=== PATIENT | male | born 1990 | race Caucasian/White ===

== ENCOUNTER 2022-09-15 12:29 | Emergency (ER) | payer MEDICAID, SELFPAY ==
--- NOTE | ~2022-09-15 | XR_ITS ---
EXAMINATION: XR CHEST CLINICAL INFORMATION: Productive cough. COMPARISON: 05/14/2015 chest radiographs. TECHNIQUE: 2 views of the chest were obtained. FINDINGS: No significant abnormality is noted involving the heart, lungs, mediastinum, bony thorax or soft tissues. XR/XR chest 2V IMPRESSION: No acute cardiopulmonary process.
[2022-09-15 12:41] VITALS: BP 151/96; PULSE 89; RESP 19; TEMP 36.6; O2SAT 98; BMI 32.6
--- NOTE | 2022-09-15 12:41 | ED.URI ---
HPI - URI/Sore Throat General Chief Complaint: Upper Respiratory Symptoms Stated Complaint: sore throat Time Seen by Provider: 09/15/22 13:10 History of Present Illness HPI Narrative: Patient complains of cough productive of sputum for the past 2 weeks along with runny nose Related Data Previous Rx's Medication Instructions Recorded azithromycin 250 mg tablet See Rx Instructions PO .COMPLEX #6 09/15/22 (Zithromax Z-Nico) tabs benzonatate 200 mg capsule 200 mg PO BID PRN cough #14 caps 09/15/22 Allergies Allergy/AdvReac Type Severity Reaction Status Date / Time acetaminophen [From TYLENOL] AdvReac Unknown HIVES Verified 09/15/22 12:41 PMFSH Social History Social History Advance Directives: No Advance Directives Information Provided: No Physical Exam Vital Signs: Vital Signs: Last Vital Signs Temp 98 F 09/15/22 12:41 Pulse 89 09/15/22 12:41 Resp 19 09/15/22 12:41 BP 151/96 H 09/15/22 12:41 Pulse Ox 98 09/15/22 12:41 O2 Del Method Room Air 09/15/22 12:41 BMI result Body Mass Index 32.6 Course Course Course Narrative: RME - 31 yo male with no medical problems, active smoker who presents to the ER for evaluation of sore throat, laryngitis, cough, blood tinged sputum for the last 2 weeks. Symptoms overall improving but getting evaluated today because his significant other is here for sore throat as well. VSS in triage. Plan: CXR Patient with cough productive of sputum for 2 weeks, possibly improving had negative chest x-ray negative COVID test and was well appearing breathing easily with clear lungs He is prescribed antibiotic only if needed if symptoms are not improving after 2 days, told likely it is viral Well-appearing patient is discharged Medical Decision Making Lab Data Labs: Lab Results 09/15/22 Range/Units 13:38 COVID-19 (CATHERINE) Negative (Negative) COVID-19 Clin Com See Note Discharge Plan Discharge Clinical Impression: Bronchitis Patient Disposition: Home, Self-Care Additional Instructions: Chest x-ray was normal and COVID test was negative It is likely a viral bronchitis but it is possibly bacterial It is fine to wait a day or 2 to start antibiotic to see if it is getting better by itself Return any time for difficulty breathing any worse condition any concerns Prescriptions: New benzonatate 200 mg capsule 200 mg PO BID PRN (Reason: cough) Qty: 14 0RF azithromycin [Zithromax Z-Nico] 250 mg tablet See Rx Instructions .ROUTE .COMPLEX Qty: 6 0RF Rx Instructions: For 250 mg dose pack: take 500 mg today (day 1), then 250 mg for 4 days (days 2-5)
[2022-09-15 14:01] LABS: COVID-19 Test Negative (Negative); IDNOW Serial# 16C4AD1C
== END 2022-09-15 14:31 | disposition home or self-care (01) ==
PROVIDERS: Physician Assistant Medical; Emergency Provider Emergency Medicine
DX: J40 Bronchitis, not specified as acute or chronic (principal); Z20.822 Contact with and (suspected) exposure to COVID-19
CPT/HCPCS: 71046; 87635; 99282; 99283

== ENCOUNTER 2022-09-17 18:28 | Emergency (ER) | payer MEDICAID, SELFPAY ==
[2022-09-17 19:07] VITALS: BP 130/87; PULSE 88; RESP 18; TEMP 36; O2SAT 99; BMI 33.8
--- NOTE | 2022-09-17 19:11 | ED_ITS ---
HPI - Skin/Abscess/Foreign Bdy General Chief complaint: Skin/Abscess/Foreign Body Stated complaint: Rash on hands and feet Time Seen by Provider: 09/17/22 20:07 Source: patient Mode of arrival: ambulatory Limitations: no limitations History of Present Illness HPI narrative: Patient is a 31-year-old male with no significant past medical history presenting with rash to dorsal aspect of hands and dorsum of feet for the past 3 weeks. He denies pain or pruritis. Denies fevers/sweats/chills or body aches. Reports areas of the rash occasionally appear to be blister-like and he punctures them. Drainage is clear. No rash to palms of hands or soles of feet. States rash began after going to the gym. Has not been to the gym in the past 2 weeks related to cough, and rash has persisted. Denies any close contacts with similar rash. Denies any new medications. Denies concern for STIs. Denies known tick bites. Denies working outside or being outside frequently. Denies any sores in his mouth. complaint: rash Onset (ago): week(s) Tetanus up to date: yes Location: L hand, R hand, L foot and R foot Severity: mild Relieving factors: none Exacerbating factors: none Context: none Associated symptoms: denies other symptoms Treatments prior to arrival: none Related Data Previous Rx's Medication Instructions Recorded azithromycin 250 mg tablet See Rx Instructions PO .COMPLEX #6 09/15/22 (Zithromax Z-Nico) tabs benzonatate 200 mg capsule 200 mg PO BID PRN cough #14 caps 09/15/22 prednisone 20 mg tablet 40 mg PO DAILY #10 tabs 09/17/22 triamcinolone acetonide 0.5 % 1 appl topical BID #15 grams 09/17/22 topical cream Allergies Allergy/AdvReac Type Severity Reaction Status Date / Time acetaminophen [From TYLENOL] AdvReac Unknown HIVES Verified 09/17/22 19:07 Review of Systems Review of Systems: As per HPI. Yes all other systems are reviewed and are negative Constitutional: Constitutional: Reports as per HPI [facility] Social History Social History Advance Directives: No Advance Directives Information Provided: No Physical Exam Vital Signs: Vital Signs: Last Vital Signs Temp 97.7 F 09/17/22 19:58 Pulse 86 06/12/23 19:58 Resp 19 09/17/22 19:58 BP 143/88 H 09/17/22 19:58 Pulse Ox 99 09/17/22 19:58 O2 Del Method Room Air 09/17/22 19:58 BMI result Body Mass Index 33.8 Vital signs have been reviewed and appear to be correct. Blood pressure slightly elevated. Heart rate normal. Respiratory rate normal. Temperature normal. Oxygen saturation normal. Const: General: cooperative, healthy appearing and no acute distress Orientation/consciousness: oriented to person, oriented to place, oriented to time and patient oriented x3 Limitations: no limitations HEENT: Head: Yes normocephalic and Yes atraumatic Ears: external ears normal General nose exam: Normal external nose present Face and sinus: Yes face symmetric Mouth: oropharynx normal and moist mucous membranes Throat: Yes uvula midline Eyes: Pupils: Equal, round and reactive pupils present Neck: Neck: Yes normal visual inspection and Yes supple Resp: Effort & Inspection: normal respiratory effort and able to speak in complete sentences Auscultation: clear to auscultation bilaterally Cardio: Rate: regular rate Rhythm: regular rhythm Heart sounds: S1 normal heart sound present and S2 normal heart sound present GI: Palpation (GI): Soft to palpation and nontender Auscultation: normoactive bowel sounds : General: Yes no CVA tenderness Back/Spine/Pelvis: Back: no CVA tenderness Skin: General skin exam: elasticity normal and turgor normal Rashes: rashes noted papules bilateral dorsal hand size (2-3mm), arrangement clustered, borders indistinct and color blanching and red; fluctuant not assessed and nontender, papules bilateral dorsal foot size (2-3mm), arrangement clustered, borders indistinct and color blanching and red; fluctuant not assessed and nontender Neuro: General: oriented to person, oriented to place, oriented to time, mando ent oriented x3, moves all extremities, no focal motor deficits and CN's II-XI intact bilaterally Cranial nerves: Yes Equal, round and reactive pupils present Cognition (Neuro): normal cognition Extrem: General: Yes full ROM, Yes no pedal edema and Yes no calf tenderness Psych: Mental Status: mental status grossly normal Affect: normal affect Thought process: Normal thought process present Course Course Course Narrative: RME: 31yo M w/PMHx bronchitis tx in our ED 09/15 presenting to the ED c/o rash to b/l hands and feet x few weeks. Denies known new exposures, soaps/lotions, detergents, new medications. Is sexually active with 1 partner, denies concern for STI Papular macular blanching lesions noted bilateral hands and feet. CBC, BMP, tick-borne, Lyme, syphilis ordered Full HPI, ROS and PE to be performed by primary ED provider. Medical Decision Making Medical Decision Making [facility] Narrative: Patient is a 31-year-old male with no significant past medical history presenting with rash to dorsal aspect of hands and dorsum of feet for the past 3 weeks. On exam patient is awake, A+Ox3, in no acute distress, VS WNL, afebrile, erythematous maculopapular nontender rash to dorsal aspect of hands and feet without drainage, no bullae, negative Nikolsky's, no oral lesions, no petechiae, no rash to palms or soles, no linear burrows. Labs within normal limits. Differential includes contact dermatitis, dishydrotic eczema, Lyme. Considered but unlikely DRESS, endocarditis, TTP, meningococcemia, SSSS, TEN/SJS, TSS, seondary syphilis. Will prescribe short course of prednisone and topical triamcinolone cream. Instructed patient to follow up with PCP as he will likely require referral to dermatology. Patient instructed to avoid puncturing any blisters/vesicles. Return precautions discussed at bedside. Differential Diagnosis Differential Diagnoses: The differential diagnosis associated with the presentation includes As above. Lab Data [facility] Lab Attestation statement: I reviewed the patient's lab results. 09/17/22 19:41 09/17/22 19:41 Labs: Lab Results 09/17/22 09/17/22 Range/Units 19:41 19:41 WBC 8.1 (4.8-10.8) X10*3/uL RBC 5.03 (4.60-5.80) X10*6/uL Hgb 15.4 (14.0-18.0) g/dl Hct 44.8 (42.0-52.0) % MCV 89.1 (80.0-98.0) fL MCH 30.6 (27.0-33.0) pg MCHC 34.4 (31.0-36.0) g/dl RDW 12.4 (11.0-16.0) % Plt Count 300 (160-400) X10*3/uL MPV 9.9 (9.4-12.4) fL Immature Gran % (Auto) 0.4 (0.0-0.4) % Neut % (Auto) 65.3 (45-73) % Lymph % (Auto) 24.2 (20-40) % [place] % (Auto) 7.4 (2-11) % Eos % (Auto) 2.1 (0-4) % Baso % (Auto) 0.6 (0-2) % Lymph # (Auto) 2.0 (1.2-4.9) X10*3/uL [place] # (Auto) 0.6 (0.1-1.2) X10*3/uL Eos # (Auto) 0.2 (0.0-0.4) X10*3/uL Baso # (Auto) 0.1 (0.0-0.2) X10*3/uL Abs Immat Gran (auto) 0.03 (0.00-0.03) X10*3/uL Absolute Neuts (auto) 5.3 (2.0-8.3) x10*3/uL Absolute Nucleated RBC 0.000 (0.0-0.012) X10*3/uL Nucleated RBC % (auto) 0.0 (0.0-0.2) /100WBC Sodium 140 (135-145) mmol/L Potassium 4.4 (3.3-5.1) mmol/L Chloride 102 (96-108) mmol/L Carbon Dioxide 29 (22-29) mmol/L Anion Gap 13 (12-20) BUN 16 (9-16) mg/dL Creatinine 0.85 (0.5-1.4) mg/dL Estim Creat Clear Calc 146.7 Estimated GFR > 60 Random Glucose 74 (60-115) mg/dL Calcium 10.3 H (8.4-10.2) mg/dL External Record Review External record reviewed: Inpatient record and Outpatient record Prescription Management I considered prescription management with: Other (prednisone) Discharge Plan Discharge Clinical Impression: Rash and other nonspecific skin eruption Patient Disposition: Home, Self-Care Instructions: Acute Rash (ED) Additional Instructions: You are being prescribed prednisone which is an oral steroid, as well as a topical steroid cream. Please use these as prescribed. Please do not pop or puncture any blisters as this can cause infection. Follow up with your PCP to obtain a referral to dermatology for ongoing symptoms. Return to the emergency department if your rash worsens/spreads, worsening or uncontrolled pain, fevers 100.4? F or greater, vomiting, shortness of breath, discharge from your rash, or any other concerning symptoms. Prescriptions: New prednisone 20 mg tablet 40 mg PO DAILY Qty: 10 0RF triamcinolone acetonide 0.5 % cream 1 appl topical BID Qty: 15 0RF Rx Instructions: Apply to rash on hands and feet twice daily. No Action benzonatate 200 mg capsule 200 mg PO BID PRN (Reason: cough) Qty: 14 0RF azithromycin [Zithromax Z-Nico] 250 mg tablet See Rx Instructions .ROUTE .COMPLEX Qty: 6 0RF Rx Instructions: For 250 mg dose pack: take 500 mg today (day 1), then 250 mg for 4 days (days 2-5)
[2022-09-17 19:48] LABS: MANUAL DIFF FLAG NO
[2022-09-17 19:49] LABS: Basophils Absolute Auto 0.1 X10*3/uL (0.0-0.2); Basophils Percent Auto 0.6 % (0-2); Eosinophils Absolute Auto 0.2 X10*3/uL (0.0-0.4); Eosinophils Percent Auto 2.1 % (0-4); Hematocrit 44.8 % (42.0-52.0); Hemoglobin 15.4 g/dl (14.0-18.0); Imm Gran Abs Auto 0.03 X10*3/uL (0.00-0.03); Imm Gran Pct Auto 0.4 % (0.0-0.4); Lymphocytes Percent Auto 24.2 % (20-40); Mean Corpuscular HGB Conc 34.4 g/dl (31.0-36.0); Mean Corpuscular Hemoglobin 30.6 pg (27.0-33.0); Mean Corpuscular Volume 89.1 fL (80.0-98.0); Mean Platelet Volume 9.9 fL (9.4-12.4); Monocytes Absolute Auto 0.6 X10*3/uL (0.1-1.2); Monocytes Percent Auto 7.4 % (2-11); Neutrophils Absolute Auto 5.3 x10*3/uL (2.0-8.3); Neutrophils Percent Auto 65.3 % (45-73); Platelet Count 300 X10*3/uL (160-400); Red Blood Count 5.03 X10*6/uL (4.60-5.80); Red Cell Distribution Width 12.4 % (11.0-16.0); White Blood Count 8.1 X10*3/uL (4.8-10.8)
[2022-09-17 19:58] VITALS: BP 143/88; PULSE 86; RESP 19; TEMP 36.5; O2SAT 99
[2022-09-17 20:06] LABS: Anion Gap 13 (12-20); Blood Urea Nitrogen 16 mg/dL (9-16); Calcium 10.3 mg/dL (8.4-10.2); Carbon Dioxide 29 mmol/L (22-29); Chloride 102 mmol/L (96-108); Creatinine Clr Calc Pharmacy 146.7; Estimated Glomerular Filt Rate > 60; Glucose Random 74 mg/dL (60-115); Potassium 4.4 mmol/L (3.3-5.1); Sodium 140 mmol/L (135-145)
[2022-09-19 06:11] LABS: Syphilis Screen Nonreactive (Nonreactive)
[2022-09-19 22:58] LABS: Lyme Abs Screen <0.90 index
[2022-09-20 23:28] LABS: A. Phagocytphilium DNA,RT-PCR NOT DETECTED (NOT DETECTED); Babesia Microti DNA, RT-PCR NOT DETECTED (NOT DETECTED); Borrelia Miyamotoi,DNA RT-PCR NOT DETECTED (NOT DETECTED); E.Chaffeensis DNA RT-PCR NOT DETECTED (NOT DETECTED); Lyme(Borrelia ssp)DNA RT-PCR NOT DETECTED (NOT DETECTED)
== END 2022-09-17 21:10 | disposition home or self-care (01) ==
PROVIDERS: Physician Assistant; Emergency Provider Emergency Medicine Emergency Medical Services
DX: R21 Rash and other nonspecific skin eruption (principal)
CPT/HCPCS: 36415; 80048; 85025; 86617; 86618; 86780; 87798; 87801; 99282; 99283

== ENCOUNTER 2023-11-05 23:53 | Emergency (ER) | payer OTHER, SELFPAY ==
[2023-11-06 00:03] VITALS: BP 142/92; PULSE 81; RESP 18; TEMP 36.7; O2SAT 97; BMI 34.7
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
[2023-11-06] MEDS: Ketorolac Tromethamine 60 MG/2 ML VIAL IM (00:47)
[2023-11-06 00:53] VITALS: BP 142/92; PULSE 81; RESP 18; TEMP 36.7; O2SAT 97
== END 2023-11-06 00:56 | disposition home or self-care (01) ==
PROVIDERS: Emergency Provider Emergency Medicine
DX: M54.50 Low back pain, unspecified (principal)
CPT/HCPCS: 96372; 99284; J1885